=== PATIENT | male | born 1945 | race Caucasian/White ===

== ENCOUNTER 2019-05-23 06:37 | Emergency (ER) | payer MEDICARE, OTHER ==
[~2019-05-23] VITALS: Ht 185.4 cm; Wt 90.0 kg
[2019-05-23 06:42] VITALS: BP 182/81
[2019-05-23] MEDS ORDERED: ipratropium/albuterol 3ml nebule NEB ONE (07:00)
[2019-05-23] MEDS ORDERED: DOXY100C43 PO (08:01)
== END 2019-05-23 08:15 | disposition home or self-care (01) ==
LOC: ER 06:38
DX: J40 Bronchitis, not specified as acute or chronic (principal); F17.200 Nicotine dependence, unspecified, uncomplicated; F15.90 Other stimulant use, unspecified, uncomplicated; Z88.5 Allergy status to narcotic agent
CPT/HCPCS: 71045; 71046; 93005; 94640; 94760; 99283

== ENCOUNTER 2021-09-25 16:51 | Emergency (ER) | payer OTHER, MEDICARE ==
[~2021-09-25] VITALS: Ht 185.4 cm; Wt 88.6 kg
[2021-09-25 18:32] VITALS: BP 141/78
== END 2021-09-25 18:33 | disposition home or self-care (01) ==
LOC: ER 16:51
DX: F10.20 Alcohol dependence, uncomplicated (principal); F15.10 Other stimulant abuse, uncomplicated; H92.02 Otalgia, left ear; Z60.2 Problems related to living alone; Z88.5 Allergy status to narcotic agent; Y90.9 Presence of alcohol in blood, level not specified
CPT/HCPCS: 99283